=== PATIENT | female | born 1960 | race Caucasian/White ===

== ENCOUNTER 2017-03-17 11:09 | Emergency (ER) | payer BC ==
[~2017-03-17] VITALS: Ht 170.2 cm; Wt 78.6 kg
[~2017-03-17 11:09] MED LIST: AZEL0.055 OPB; CALC1TAB9; CLR10 PO; ESTR0.07 TD; FLUT0.15; LANS30CA12 PO; MONT1TAB3 PO; bladder medication PO
[2017-03-17 11:13] VITALS: TEMP 36.7; Ht 170.2 cm; Wt 78.6 kg
[2017-03-17] MEDS ORDERED: KETOROLAC TROMETHAMINE 30 MG/ML VIAL IV STA (11:32)
[2017-03-17] MEDS ORDERED: TRAMADOL HCL 50 MG TAB PO STA (11:32)
[2017-03-17] MEDS ORDERED: CYCLOBENZAPRINE HCL 10 MG TAB PO STA (11:32)
[2017-03-17] MEDS ORDERED: KETOROLAC TROMETHAMINE 60 MG/2 ML VIAL ONE (11:38)
[2017-03-17] MEDS ORDERED: KETOROLAC TROMETHAMINE 60 MG/2 ML VIAL IM ONE (11:45)
--- NOTE | 2017-03-17 11:48 | EMERGENCY ROOM VISIT NOTE ---
History First contact with patient: 11:19 Chief Complaint: BACK PAIN Stated Complaint: LOW BACK PAIN W/BURNING PAIN DOWN INTO RT LEG History of Present Illness The patient is a 56 year old female who presents to the Emergency Room with complaints of lower back pain for approximately one week. The patient was lifting a heavy object when she thought that she may be pulled a muscle in her lower back. She has tried iburofen and a heating pad with minimal relief. The patient noticed yesterday that the pain began going down her right thigh. She denies any numbness, tingling or weakness. No urinary or bowel incontinence. She denies any saddle paresthesias. The patient denies any history of lumbar back pain, however she does have a history of stenosis in her neck. Review of Systems 10 system review performed and negative unless noted in HPI or below Past Medical/Surgical History Spinal stenosis of the cervical spine Family History Diabetes, hypertension Social History Smoking Status: Never Smoker Marital Status: Occupation Status: employed Current/Historical Medications Scheduled Azelastine Hcl (Ophth) (Azelastine Hcl), 1 DROPS OPB DAILY Calcium Citrate-Vitamin D (Citracal + D3 Maximum), DAILY Cyclobenzaprine Hcl (Flexeril), 10 MG PO TID Estradiol (Vivelle-Dot), 1 PATCH TD weekly Fluticasone Propionate (Nasal) (Flonase Allergy Relief), DAILY Lansoprazole (Prevacid), 30 MG PO DAILY Loratadine (Claritin), 10 MG PO DAILY Methylprednisolone (Medrol Dosepak), 0 PO DAILY Montelukast Sodium (Singulair), 1 TAB PO DAILY Ondasetron Odt (Zofran Odt), 4 MG SL Q6H [bladder medication], 1 TAB PO DAILY Scheduled PRN Oxycodone/Acetaminophen 5MG/325MG (Percocet 5MG/325MG), 1-2 TABS PO Q4H PRN for Pain Tramadol (Ultram), 50 MG PO Q4H PRN for Pain Physical Exam Vital Signs Date Time Temp Pulse Resp B/P (MAP) Pulse Ox O2 Delivery O2 Flow Rate FiO2 03/17/17 12:48 57 18 138/90 99 03/17/17 11:13 36.7 71 18 161/99 99 Room Air Physical Exam VITALS: Vitals are noted on the nurse's note and reviewed by myself. Vital signs stable. GENERAL: 56-year-old female, moderately uncomfortable SKIN: The skin was without rashes, erythema, edema, or bruising. HEAD: Normocephalic atraumatic. NECK:. Cervical spine is nontender. HEART: Regular rate and rhythm without murmurs gallops or rubs. LUNGS: Clear to auscultation bilaterally without wheezes, rales or rhonchi. No accessory muscle use. MUSCULOSKELETAL: No muscle atrophy, erythema, or edema noted. Tenderness to palpation over the lumbar spinous processes. No tenderness or muscle spasms noted over the paraspinous muscles bilaterally. No tenderness over the SI joint bilaterally. Positive right-sided straight leg test. Sensation in lower extremities is intact. Strength 5/5 throughout. NEURO: Patient was alert and oriented to person place and time. Normal sensation to touch. No focal neurological deficits. Medical Decision & Procedures ER Provider Diagnostic Interpretation: Patient Name: MANUEL COTE Unit Number: [id number] Dictated: 03/17/171200 Transcribed: 03/17/17 120 MS Printed Date/Time: [~ rep prt dt]/[~ rep prt tm] [~ rep ct labl] - [~ rep ct ivnm] [facility] Radiology Department [place], [facility] Dictated: 03/17/171200 Transcribed: 03/17/17 1201 MS Printed Date/Time: [~ rep prt dt]/[~ rep prt tm] [~ rep ct labl] - [~ rep ct ivnm] L-SPINE MIN 4 VIEWS ROUTINE HISTORY: Pain Pain lower back down R leg on inner thigh COMPARISON: None. FINDINGS: There is no fracture. Mild scoliosis. Moderate degenerative disc change L4-L5 with minimal degenerative disc changes elsewhere. IMPRESSION: Mild degenerative change L4-L5. Mild scoliosis. No acute process. The above report was generated using voice recognition software. It may contain grammatical, syntax or spelling errors. Electronically signed by: Sage Guzman M.D. 03/17/2017 12:02 PM Dictated Date/Time: 03/17/2017 12:01 PM The status of this report is Signed. Draft = Not yet reviewed or approved by Radiologist. Signed = Reviewed and approved by Radiologist. <AttendingPhy></AttendingPhy> <FamilyPhy>Manuel Julio M.D.</FamilyPhy> < PrimaryPhy>Manuel Julio M.D.</PrimaryPhy> <UnitNumber>[id number]</ UnitNumber> <VisitNumber>[id number]</VisitNumber> <PatientName>MANUEL COTE</PatientName> <DateOfBirth>1960</DateOfBirth> <Location>[facility]</ Location> <ServiceDate>03/17/17</ServiceDate> <MNE>ESINDI</MNE> <OrderingPhy> Lisa Lebron PA-C</OrderingPhy> <OrderingPhyMNE>f rep ord dr ruiz</ OrderingPhyMNE> <DictatingPhyMNE>f rep dict dr ruiz</DictatingPhyMNE> <CCListMNE> f rep ct mne</CCListMNE> <AdmittingPhyMNE>f pt admit dr ruiz</AdmittingPhyMNE> < AttendingPhyMNE>f pt attend dr ruiz</AttendingPhyMNE> <ConsultingPhyMNE>f pt consult dr ruiz</ConsultingPhyMNE> <FamilyPhyMNE>f pt fam dr ruiz</FamilyPhyMNE> <OtherPhyMNE>f pt other dr ruiz</OtherPhyMNE> < PrimaryPhyMNE>f pt prim care dr ruiz</PrimaryPhyMNE> <ReferringPhyMNE>f pt referring dr ruiz</ReferringPhyMNE> Medications Administered Medications (Trade) Dose Ordered Sig/Nikhil Route Start Time Stop Time Status Last Admin Dose Admin Cyclobenzaprine HCl (Flexeril Tab) 10 mg NOW STAT PO 03/17/17 11:32 03/17/17 11:34 DC 03/17/17 11:41 10 MG Tramadol HCl (Ultram Tab) 50 mg NOW STAT PO 03/17/17 11:32 03/17/17 11:34 DC 03/17/17 11:40 50 MG Ketorolac Tromethamine (Toradol Inj) 60 mg ONE ONCE IM 03/17/17 11:45 03/17/17 11:46 DC 03/17/17 11:41 60 MG ED Course The patient was seen and examined She was given Toradol 60 mg IM, Flexeril 30 mg po and Ultram 50 mg po Imaging was performed and reviewed The findings were discussed with the patient who is feeling somewhat better with the pain medication given. We discussed other options particularly performing an MRI. She will follow-up with her primary care physician. 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 She did not want steroids. She says that she is unable to sleep when she takes them. The patient was given Ultram, Toradol and Flexeril with decent pain relief. She requested an MRI. I explained that this would not change our course that she does not have any deficits on exam. She voiced understanding. She will follow-up with her primary care physician for further workup and treatment. This chart was completed in part utilizing [employer] Speech Voice Recognition software. Attempts were made to minimize the grammatical errors, random word insertions, pronoun errors and incomplete sentences. Any formal questions or concerns about the content, text or information contained within the body of this dictation should be directly addressed to the provider for clarification. Blood Pressure Screening Patient's blood pressure: Elevated blood pressure Blood pressure disposition: Did not require urgent referral (follow-up with PCP at her earliest convenience) Impression Primary Impression: Lumbar radiculopathy Departure Information Dispostion Home / Self-Care Condition GOOD Prescriptions Ondasetron Odt (ZOFRAN ODT) 4 Mg Tab 4 MG SL Q6H for Nausea, #15 TAB Prov: Lisa Lebron PA-C 03/17/17 Oxycodone/Acetaminophen 5MG/325MG (PERCOCET 5MG/325MG) Tab 1-2 TABS PO Q4H Y for Pain, #15 TAB For Initial Treatment Prov: Lisa Lebron PA-C 03/17/17 Cyclobenzaprine Hcl (FLEXERIL) 10 Mg Tab 10 MG PO TID for Muscle Spasms, #20 TAB Prov: Lisa Lebron PA-C 03/17/17 Tramadol (Ultram) 50 Mg Tab 50 MG PO Q4H Y for Pain, #20 TAB Prov: Lisa Lebron PA-C 03/17/17 Methylprednisolone (MEDROL DOSEPAK) 4 Mg Mario Alberto 0 PO DAILY, #1 PKT Prov: Lisa Lebron PA-C 03/17/17 Referrals Manuel Julio M.D. (PCP) Patient Instructions Lumbar Radiculopathy, My [facility] Additional Instructions Take Ultram 50 mg tabs one every 4 hours as needed for mild to moderate pain. Ibuprofen 600 mg every 6 hours Percocet 1-2 tabs every 4 hours for severe pain. Do not drink alcohol or drive while taking this medication. This may be taken with ibuprofen, but avoid Tylenol. It is recommended that you take an [id number] stool softener such as Colace twice daily with this medication as it can cause constipation Flexeril every 8 hours as needed for muscle spasms. Please do not drink alcohol or drive or taking this medication. Apply heat lower back over the next 48 hours. Lying on a hard surface may help with the pain. No strenuous activity until your back is feeling better Return to the emergency department if you have any of the following symptoms: -Problems with urination -Weakness in your legs -Chest pain -Shortness of breath -Worsening pain Please follow-up with your primary care physician next 2-3 days.
--- NOTE | 2017-03-17 12:03 | DIAGNOSTIC IMAGING REPORT ---
L-SPINE MIN 4 VIEWS ROUTINE HISTORY: Pain Pain lower back down R leg on inner thigh COMPARISON: None. FINDINGS: There is no fracture. Mild scoliosis. Moderate degenerative disc change L4-L5 with minimal degenerative disc changes elsewhere. IMPRESSION: Mild degenerative change L4-L5. Mild scoliosis. No acute process. The above report was generated using voice recognition software. It may contain grammatical, syntax or spelling errors. Electronically signed by: Sage Guzman M.D. 03/17/2017 12:02 PM Dictated Date/Time: 03/17/2017 12:01 PM
[2017-03-17] MEDS ORDERED: ONDA4TAB10 SL (12:33)
[2017-03-17] MEDS ORDERED: METH4PAK PO (12:33)
[2017-03-17] MEDS ORDERED: TRAM-10 PO (12:33)
[2017-03-17] MEDS ORDERED: CYCL10TA6 PO (12:33)
[2017-03-17] MEDS ORDERED: OXYC-57 PO (12:33)
[2017-03-17 12:48] VITALS: BP 138/90; PULSE 57; O2SAT 99
== END 2017-03-17 12:48 | disposition home or self-care (01) ==
LOC: C.EDB 11:12 → C.EDD 12:48
DX: M54.16 Radiculopathy, lumbar region (principal); M48.02 Spinal stenosis, cervical region; Z83.3 Family history of diabetes mellitus; Z82.49 Family history of ischemic heart disease and other diseases of the circulatory system; Z79.899 Other long term (current) drug therapy

== ENCOUNTER → 2017-08-19 | Outpatient (CLI) | payer BC ==
[~2017-08-19] MED LIST changes: +CYCL10TA6 PO; +DARI15TA PO; +ONDA4TAB10 SL; +OXYC-57 PO; +TRAM-10 PO; -bladder medication PO
--- NOTE | 2017-08-19 07:54 | DIAGNOSTIC IMAGING REPORT ---
LUMBAR SPINE W/O CONTRAST CLINICAL HISTORY: 56 years-old Female presenting with LUMBAR RADICULOPATHY, low back pain for 5 to 6 months, left-sided radiculopathy. TECHNIQUE: Multisequence, multiplanar MR imaging of the lumbar spine was performed without the use of intravenous contrast. IV contrast: None. COMPARISON: Plain radiographs of the lumbar spine from 03/17/2017. FINDINGS: Localizer images: None available. Normal lumbar lordosis. Vertebral bodies maintain normal height, alignment, and bone marrow signal intensity. Intervertebral discs demonstrate minimal disc bulges from L1-2 through L3-4 and disc desiccation at L4-5 and L5-S1 with minimal height loss at L4-5. Minimal disc bulge at L3-4 results in mild bilateral neural foraminal narrowing. No significant spinal canal narrowing at any of the levels. Annular fissure noted at L4-5 with a mild disc bulge resulting in greater effacement of the right lateral recess of L4-5 and right L4-5 neural foramen. Moderate right and mild left neural foraminal narrowing at L4-5. The exiting L4 nerve root is not impacted by the disc bulge. However, the exiting left L4 nerve root may be abutted by the disc bulge (series 6 image 21). Disc bulge at this level also abuts the transiting right L5 nerve root. Annular fissure also suggested at the L5-S1 disc without significant disc bulge. Spinal cord ends in good position at the inferior endplate of L1. Cauda equina normal in morphology. Paraspinal soft tissues within normal limits. IMPRESSION: 1. Annular fissures at L4-5 and L5-S1 with disc bulge at L4-5. This results in moderate right and mild left neural foraminal narrowing at L4-5, abutment of the exiting left L4 nerve root, and abutment of the transiting right L5 nerve root. Electronically signed by: Royce Marie M.D. 08/19/2017 7:53 AM Dictated Date/Time: 08/19/2017 7:45 AM
== END | disposition home or self-care (01) ==
LOC: C.MRIBC 06:40
PROVIDERS: ATTEND Anesthesiology
DX: M54.16 Radiculopathy, lumbar region (principal)

== ENCOUNTER → 2018-01-29 | Outpatient (CLI) | payer BC ==
[~2018-01-29] MED LIST changes: -ONDA4TAB10 SL; -OXYC-57 PO; -TRAM-10 PO
[2018-01-29 12:47] LABS: BASO % 0.4 %; BASO ABS # 0.02 K/uL (0-0.2); EOS ABS # 0.09 K/uL (0-0.5); HEMATOCRIT 40.5 % (37-47); HEMOGLOBIN 13.3 g/dL (12.0-16.0); IG# 0.01 K/uL (0.00-0.02); LYMPH % 24.2 %; LYMPH ABS # 1.08 K/uL (1.2-3.4); MEAN CELL VOLUME 97.1 fL (80-100); MEAN CORPUSCULAR HEMOGLOBIN 31.9 pg (25-34); MEAN CORPUSCULAR HGB CONC 32.8 g/dl (32-36); MEAN PLATELET VOLUME 10.3 fL (7.4-10.4); MONO % 10.3 %; MONO ABS # 0.46 K/uL (0.11-0.59); NEUT % 62.9 %; PLATELET COUNT 228 K/uL (130-400); RED CELL DISTRIBUTION WIDTH CV 12.5 % (11.5-14.5); RED CELL DISTRIBUTION WIDTH SD 44.3 fL (36.4-46.3); WHITE BLOOD COUNT 4.46 K/uL (4.8-10.8)
[2018-01-29 13:06] LABS: ALBUMIN 3.6 gm/dl (3.4-5.0); BLOOD UREA NITROGEN 11 mg/dl (7-18); CALCIUM 8.8 mg/dl (8.5-10.1); CARBON DIOXIDE 30 mmol/L (21-32); CHOLESTEROL 158 mg/dl (0-200); CREATININE 0.87 mg/dl (0.60-1.20); GLUCOSE 81 mg/dl (70-99); LDL CHOLESTEROL CALCULATED 73 mg/dl; PHOSPHORUS 3.4 mg/dl (2.5-4.9); SODIUM 142 mmol/L (136-145)
== END | disposition home or self-care (01) ==
LOC: C.LABMFLN 08:33
PROVIDERS: ATTEND Family Medicine
DX: Z11.59 Encounter for screening for other viral diseases (principal); K21.9 Gastro-esophageal reflux disease without esophagitis; Z13.220 Encounter for screening for lipoid disorders